=== PATIENT | female | born 2000 | race Caucasian/White ===

== ENCOUNTER 2019-01-25 23:57 | Emergency (ER) | payer OTHER ==
[~2019-01-25] VITALS: Ht 157.5 cm; Wt 47.2 kg
--- NOTE | 2019-01-26 00:05 | NUR ---
PATIENT WAS MSE BY DR PEDROZA IN ROOM 05A.
[2019-01-26] MEDS ORDERED: IV D5/ 0.9% NACL 1,000 ML IV ONE (00:08)
[2019-01-26 00:45] LABS: BASOPHILS # (AUTO) 0.1 K/uL (0.0-8.0); BASOPHILS % (AUTO) 0.5 % (0.0-2.0); EOSINOPHILS # (AUTO) 0.1 K/uL (0.0-0.7); EOSINOPHILS % (AUTO) 0.7 % (0.0-7.0); HEMOGLOBIN 13.1 g/dL (10.9-14.3); LYMPHOCYTES # (AUTO) 5.8 K/uL (20.0-40.0); LYMPHOCYTES % (AUTO) 49.8 % (20.5-74.5); MEAN CORPUSCULAR HEMOGLOBIN 31.3 uug (24.7-32.8); MEAN CORPUSCULAR HGB CONC 34 g/dL (32.3-35.6); MONOCYTES # (AUTO) 0.6 K/uL (2.0-10.0); MONOCYTES % (AUTO) 5.2 % (0-11); NEUTROPHILS # (AUTO) 5.1 K/uL (1.8-8.9); NEUTROPHILS % (AUTO) 43.8 % (31.5-64.5); PLATELET COUNT (AUTO) 315 K/uL (179-408); RED BLOOD CELL COUNT(AUTO) 4.19 MIL/uL (3.63-4.92); WHITE BLOOD COUNT (AUTO) 11.7 K/uL (3.8-11.8)
[2019-01-26] MEDS ORDERED: IV NORMAL SALINE 1000 ML BAG IV ONE (01:15)
[2019-01-26 01:30] LABS: BILIRUBIN,DIRECT 0.1 mg/dL (0.0-0.2); BILIRUBIN,TOTAL 0.4 mg/dL (0.2-1.0); POTASSIUM 3.2 mmol/L (3.5-5.1); TOTAL PROTEIN, SERUM 7.2 g/dL (6.4-8.2)
--- NOTE | 2019-01-26 01:30 | NUR ---
Patient is resting comfortably in bed with eyes closed
--- NOTE | 2019-01-26 02:00 | NUR ---
Patient is resting comfortably in bed with eyes closed. Friend at bedside.
[2019-01-26] MEDS ORDERED: POTASSIUM CHLORIDE 20 MEQ TAB.PRT.SR PO ONE (02:15)
--- NOTE | 2019-01-26 02:15 | NUR ---
Patient A & O X3. No c/o any pain. no SOB. No dizziness.
[2019-01-26] MEDS ORDERED: POTASSIUM CHLORIDE 20 MEQ TAB.PRT.SR ONE (02:17)
--- NOTE | 2019-01-26 02:20 | NUR ---
Patient discharged to home in stable conditon. Written and verbal after care instructions given. Patient verbalizes understanding of instructions.
== END 2019-01-26 02:29 | disposition home or self-care (01) ==
LOC: ER 01-26
DX: R55 Syncope and collapse (principal)
CPT/HCPCS: 36415; 80048; 80076; 82962; 84484; 84702; 85025; 99283; J7042; 70030-TC; A4663; J7030